=== PATIENT | female | born 1960 | race Caucasian/White ===

== ENCOUNTER 2024-05-07 09:32 | Outpatient (CLI) | payer OTHER, SELFPAY | END 2024-05-07 09:33 | disposition home or self-care (01) | PROVIDERS: PCP Family Medicine; Visit Provider Emergency Medicine Emergency Medical Services | DX: S19.9XXA Unspecified injury of neck, initial encounter (principal); V49.3XXA Car occupant (driver) (passenger) injured in unspecified nontraffic accident, initial encounter; Y92.410 Unspecified street and highway as the place of occurrence of the external cause | CPT/HCPCS: A0425; A0427 ==

== ENCOUNTER 2024-05-07 10:39 | Emergency (ER) | payer OTHER, SELFPAY ==
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
[2024-05-07 10:40] VITALS: BP 132/81; PULSE 68; RESP 18; TEMP 36.8; O2SAT 97; BMI 18.8
== END 2024-05-07 12:09 | disposition home or self-care (01) ==
LOC: ED 12:05
PROVIDERS: Emergency Provider Emergency Medicine Emergency Medical Services; PCP Family Medicine
DX: S16.1XXA Strain of muscle, fascia and tendon at neck level, initial encounter (principal); V49.9XXA Car occupant (driver) (passenger) injured in unspecified traffic accident, initial encounter
CPT/HCPCS: 70450; 72125; 72170; 99284; 99291; G0390

== ENCOUNTER 2025-04-04 01:12 | Emergency (ER) | payer OTHER, SELFPAY ==
[2025-04-04 01:15] VITALS: BP 127/76; PULSE 68; RESP 16; TEMP 35.9; O2SAT 98; BMI 20.3
--- OUTSIDE RECORDS SUMMARY | 2025-04-04 01:15 | XMS_ITS | Clinical Summary ---
Author Organization [facility] Address [address] [place] [address] Care Team Providers Care Detail Maker And Fitter Name Role Phone Alba Hernandez MD Primary Care Provide r Allergies Active Allergy Reactions Criticality Noted Date Comments Polymyxin B *Unknown Low 09/17/2022 Polymyxin B Sulf-Trimethoprim 2006 eye drops Rofecoxib *Unknown High 10/09/2006 not sure Trimethoprim *Unknown Low 09/17/2022 Medications medication order composer Biotin-Hair, skin and nails. Take TID. 0 7 Active glucosamine-stefano droitin, 500-400mg, (COSAMIN DS) 500-400 mg tablet Take 1 Tablet by mouth 3 times daily. 0 1 Active cyclobenzaprine (FLEXERIL) 10 mg tabletIndication s:Tension headache Take 0.5-1 Tablets (5-10 mg) by mouth 2 times daily if needed for Muscle Spasm. 30 tablet. 3 1 Active fluticasone (50 mcg per actuation) nasal solution (FLONASE)Indicat ions:Seasonal allergies SHAKE LIQUID AND USE 2 SPRAYS IN EACH NOSTRIL EVERY DAY 16 g 1 1 Active cholecalciferol (Vitamin D-3) 2,000 unit capsule Take 1 Capsule (2,000 units) by mouth once daily. 0 1 Active triamcinolone, 55 mcg each actuation, nasal (Nasacort) 55 mcg nasal sprayIndications :Rhinitis, unspecified type Inhale 2 Sprays to both nostrils once daily. 16.9 mL 1 3 Active nicotine (NICORETTE) 4 mg gumIndications:N icotine use disorder CHEW ONE PIECE EVERY HOUR WHILE AWAKE NEEDED FOR NICOTINE CRAVING. 100 Each 2 3 Active testosterone custom compoundIndicati ons:Low testosterone Testosterone 2mg/gram cream (topiclick): apply 0.5 gram (2 clicks) topically to skin as instructed daily in the morning 30 g 5 Active medication order composer Calcium magnesium 1000-500 mg 2 tablets daily Active Owlez-0-RHZ-EPA- Fish Oil (Fish OiL) 1,000 (120-180) mg cap Take by mouth. Active estradioL 0.01% (0.1 mg/g) vaginal creamIndications :Atrophic vaginitis Insert 1 g into the vagina once weekly. 42.5 g 5 5 Active montelukast 10 mg tabletIndication s:Dust allergy Take 1 Tablet (10 mg) by mouth at bedtime. 90 Tablet 3 5 Active medication order composer Take by mouth. Stress essentials Cortisol pro 5 Active SUMAtriptan NASAL 20 mg/actuation sprayIndications :Intractable episodic headache, unspecified headache type Give at minimum 2hrs apart. Max Dose: 40mg per 24hrs.INHALE 1 SPRAY IN EACH NOSTRIL EVERY 2 HOURS NEEDED FOR MIGRAINE. MAXIMUM DAILY DOSE IS 2 PUFFS 3 Each 2 5 Active traMADoL 50 mg tabletIndication s:Upper back pain on left side Take 0.5-1 Tablets (25-50 mg) by mouth every 6 hours if needed for Pain. Take least amount possible. 20 Tablet 5 Active Additional Information Patient not taking.Reported on 02/25/2025 meloxicam 15 mg tabletIndication s:Upper back pain on left side Take 1 Tablet (15 mg) by mouth once daily. Take with food. No other NSAID medications with this medication. 30 Tablet 5 Active Active Problems Problem Noted Date Diagnosed Date Biceps tendon rupture, right, initial encounter 01/11/2025 s/p right shoulder open rota tor cuff repair, acromioplasty, AC joint resection on 09/01/24 by Rubio Aldrich MD 09/04/2024 Atrophic vaginitis 07/05/2016 Scoliosis 12/24/2014 ACL tear 06/12/2012 Congenital mitral insufficiency 10/09/2006 Overview (10/09/2006): very mild by 1999 Echo LGSIL of cervix of undetermined significance Overview (07/08/2023): 2001 LSIL, [place] CORNELL I 05/2021 UNS/HPV negative 09/2021 NIL 06/2023 LSIL/HPV+, HPV 16/18 Negative Plan: Pap and HPV due 06/2024 Resolved Problems Problem Noted Date Diagnosed Date Resolved Date Pap smear for cervical cancer screening 09/01/2021 07/08/2023 Overview (10/17/2021): Plan: Pap/HPV in 5 years Routine adult health maintenance 03/26/2014 06/21/2015 Overview (03/26/2014): Colonoscopy 03/2014 normal repeat in 10 years 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 06/21/2015 Myalgia 03/11/2009 06/06/2012 Hepatitis, unspecified 06/30/200706/21 Overview (06/30/2007): 2006, resolved Cerebral aneurysm, nonruptured 06/30/2007 09/26/2010 Overview (06/30/2007): 1-2 mm R A1, 2007 Chronic fatigue syndrome 10/09/200603/2014 Backache, unspecified 10/09/20062015 Papanicolaou smear of cervix with low grade squamous intraepithelial lesion (LGSIL) 10/09/2006 06/26/2021 Overview (10/09/2006): had colp Anxiety state, unspecified 10/09/2006 0 06/21/2015 Arthropathy, unspecified, site unspecified 10/09/2006 06/06/2012 Overview (10/09/2006): cervical degen arthritis Encounters Date Type Department Care Team Description 04/01/2025 8:00 AM CDT - 04/01/2025 11:59 PM CDT Hospital Encounter [address] [place] [address] Deshaun Solorzano MD Becken, Amy, PT 04/01/2025 Travel 03/25/2025 11:45 AM CDT - 03/25/2025 11:59 PM CDT Hospital Encounter [address] [place] [address] Deshaun Solorzano MD Rein, Erik, PT 03/25/2025 Travel 03/18/2025 8:00 AM CDT - 03/18/2025 11:59 PM CDT Hospital Encounter [address] [place] [address] Deshaun Solorzano MD Becken, Amy, PT 03/18/2025 Travel 03/12/2025 2:15 PM CDT Office Visit [facility] [address] [phone] Rubio Aldrich MD Recheck (s/p right shoulder open rotator cuff repair, acromioplasty, AC joint resection on 09/01/24 by Rubio Aldrich MD) 03/11/2025 8:00 AM CDT - 03/11/2025 11:59 PM CDT Hospital Encounter [address] [address] Deshaun Solorzano MD Vinar, Kaylin J, GUM MACHINE OPERATOR 03/11/2025 Travel 03/04/[address] [address] Alba Hernandez MD Questions 03/02/2025 3:37 PM CDT - 03/02/2025 11:59 PM CDT Hospital Encounter [address] [place] [address] Deshaun Solorzano MD Rein, Erik, PT DDD (degenerative disc disease), cervical; Foraminal stenosis of cervical region 03/02/2025 Travel 02/25/2025 7:45 AM CDT Office Visit [facility] [place] [address] [facility] [address] [phone] Deshaun Solorzano MD Consult (Left Upper Back) 02/25/2025 Travel 01/11/2025 2:00 PM CDT Office Visit [facility] [address] [facility] [address] [phone] Clifford Bojorquez PA Recheck (Right shoulder recheck) 01/11/2025 Travel from Last 3 Months Immunizations Immunization Administration Dates Next Due AMB Influenza, IIV3 (Age >=3 years)(Flu Clinic Only) 03/27/2012 AMB Influenza, IIV4 PF (=>6 mos Flulaval,Fluzone Fluarix)(Flu Clinic Only) 04/07/2014 COVID-19 vaccine ([employer] 30mcg/0.3mL) PF, MDV 07/20/2020,06/29/2020 Hepatitis A (Adult) 03/14/2007,08/23/2006 Hepatitis B (Adult) 05/06/2015,03/14/2007,2006 INFLUENZA, IIV3 PF (AGE >= 6 MO) 03/26/2024 Influenza A (H1N1), Inactivated 05/13/2009 Influenza A (H1N1), Inactiva dago (Age >=3 Years) 05/13/2009 Influenza Virus, Unspecified 03/05/2013, 03/27/2012,03/07/2011,2009,05/13/2009,02/28/2009,04/15/2008,1 06/29/2006,04/13/2006,04/11/2005, 003 Influenza, IIV3 (Age 6-35 mos) 03/07/2011,2009 Influenza, IIV3 (Age >=3 years) 03/05/20 13,03/27/2012,03/07/2011,2009,02/28/2009,04/15/2008,04/29/2007,1 06/13/2005,04/11/2005,05/12/2003 Influenza, IIV4 03/12/2023, 2,05/23/2021,2019,03/18/2019,02/20/2018,04/09/2017,1 ,04/07/2014 MMR 03/18/2019 Td (Age >=7 Years) 01/10/2016 Td, Preservative Free (age > = 7 Years) 01/10/2016 Tdap 09/24/2005 Tuberculin (PPD) 04/26/2020, 8,10/29/2017,2017,08/17/2016,11/29/2014,2013,1 ,05/17/2009,09/06/2008, 009,03/12/2007 Family History Medical History Relation Name Comments Heart block Brother 1 alive triple bypass Cancer-colon Brother 2 Zachary Aortic aneurysm Brother 3 alive Alcoholism Father Brett Cancer Father Brett lung Heart Disease Father Brett Mitral valve r eplacement, early 70s Hypertension Father Brett Cancer-breast Maternal Aunt 1 Margi Roberts post menopa usal Stroke Maternal Aunt 2 Alejandra in her 50s. no breast cancer Alcoholism Mother Margi Roberts Allergies Mother Margi Roberts Cancer-breast Mother Margi Roberts post menopausa l Coronary artery disease Mother Margi Roberts Depression Mother Margi Roberts Heart Disease Mother Margi Roberts MIs at age 61 Heart failure Mother Margi Roberts Hypertension Mother Margi Roberts Osteoarthritis Mother Margi Roberts Osteoporosis Mother Margi Roberts Thyroid Disease Mother Margi Roberts Cancer-breast Other maternal cousi n Aortic aneurysm Paternal Grandfather Cancer-ovarian No Family History Relation Name Status Comments Brother 1 alive Brother 2 Zachary Alive Brother 3 alive Alive Father Brett lung ca Maternal Aunt 1 Charmaine Maternal Aunt 2 Alejandra Mother Margi Roberts Other Paternal Grandfather Social History Tobacco Use Types Packs/Day Years Used Date Smoking Tobacco: Never Passive Smoke Exposure: Past Smokeless Tobacco: Former Chew Tobacco Cessation:Counseling Given: Yes Comments:9 months ago - used nicotime gum Alcohol Use Standard Drinks/Week Comments Yes 8 (1 standard drink = 0.6 oz pur e alcohol) PHQ-2 Answer Date Recorded PHQ-2 TOTAL SCORE 0 07/23/2024 Social Connections Answer Date Recorded Do you often feel lonely or isolated from those around you? 0 05/19/2024 Alcohol Use Answer Date Recorded How often do you have a drink containing alcohol ? 3 02/25/2025 How many drinks containing a lcohol do you have on a typical day when you are drinking? 0 02/25/2025 How often do you have five or more drinks on one occasion? 0 02/25/2025 Financial Resource Strain Answer Date R ecorded Difficulty of Paying Living Expenses 3 05/19/2024 Difficulty of Paying Living Expenses Not on file 05/19/2024 Food Insecurity Answer Date Recorded Do you worry your food will run out before you are able to buy more? 1 05/19/2024 Transportation Needs Answer Date Record ed Does lack of transportation keep you from medica l appointments? 1 05/19/2024 Does lack of transportation keep you from work, meetings or getting things that you need? 1 05/19/2024 Housing Stability Answer Date Recorded What is your housing situation today? 1 05/19/2024 Utilities Answer Date Recorded Do you have trouble paying f or utilities (for example, heat, electricity, water, phone)? 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 Not on file Not on file Not on file Obstetrics History Para Term AB IAB SAB Ectopic Multiple Livin g Live Births 3 3 3 3 Date Outcome GA Total Labor Labor/2nd/3rd Weight Sex Type Anes PTL Irene A1 A5 Name Clin Term Term Term Last Filed Vital Signs Vital Sign Reading Time Taken Comments Blood Pressure 115/74 02/25/2025 8:01 AM CDT Pulse 69 02/25/2025 8:01 AM CDT Temperature 36.2 C (97.2 F) 06/03/2024 9:16 AM SOUND ENGINEER Respiratory Rate 16 06/03/2024 9:16 AM SOUND ENGINEER Oxygen Saturation 99% 11/24/2024 7:10 AM CDT Inhaled Oxygen Concentration - - Weight 50.8 kg (112 lb) 02/25/2025 8:01 AM CDT Height 157.3 cm (5' 1.93) 02/25/2025 8:01 AM CD T Body Mass Index 20.53 02/25/2025 8:01 AM CDT Plan of Treatment Upcoming Encounters Date Type Department Care Team (Late st Contact Info) Description 04/08/2025 8:00 AM SOUND ENGINEER Appointment [address] [address] Mattie Eisenberg, GUM MACHINE OPERATOR [address] [place] [address] 04/15/2025 8:00 AM SOUND ENGINEER Appointment [address] [address] Mattie Eisenberg, GUM MACHINE OPERATOR [address] [place] [address] 04/20/2025 11:00 AM SOUND ENGINEER Office Visit [facility] [address] [place] [address] Alba Hernandez MD [address] [place] [address] 2025 12:00 PM SOUND ENGINEER Office Visit [facility] [address] [phone] Deshaun Solorzano MD [address] [place] [address] 2025 1:00 PM SOUND ENGINEER Appointment [address] [address] Jessie Calderón, PT [address] [place] [address] 06/23/2025 2:00 PM SOUND ENGINEER Office Visit [facility] [address] [place] [address] [place] [phone] Clifford Bojorquez PA [address] [facility] [address] [place] [address] Health Maintenance Due Date Last Done Comments Pneumococcal series for age 50+ (1 of 2 - PCV) 1981 Zoster (shingles) series for age 50+ (1 of 2) 2012 RSV vaccine for adults or (1 - Risk 60-74 years 1-dose series) 2022 Pap test for age 21-65 06/27/2024 , 06/27/2023, 09/05/2021, Additional history exists Influenza Vaccine (#1) 2025 , 03/12/2023, 05/29/2022, Additional history exists Depression screening for age 12+ 07/30/2025 07/30/2024, 07/23/2024, 06/27/2023, Additional history exists Mammogram for age 45-75 08/27/2025 08/28/19, 06/27/2023, 06/14/2022, Additional history exists Tetanus booster 01/09/2026 01/10/2016, 08/02/2016, 09/24/2005 BMI (ht and wt on same day) for age 18+ 02/25/2026 02/25/2025, 07/23/2024, 06/27/2023, Additional history exists Lipids for age 45-75 08/27/2029 08/27/2024, 06/27/2023, 03/12/2023, Additional history exists Colonoscopy through age 75 10/29/203310/29, 10/30/2023, 10/30/2023, Additional history exists Hepatitis B series for 19+ Completed 05/06, 03/14/2007, 09/20/2006 HIV for age 15-65 Completed 06/27/2023, , 05/25/2021 Hepatitis C screening for ag e 18-79 Completed 06/27/2023, 09/05/2021, 05/25/2021, Additional history exists Procedures Procedure Name Priority Date/Time Associated Diagnosis Comments LIPID PANEL W REFLEX MEASURED LDL Routine 08/27/2024 2:36 PM CDT Lipid screening XR MAMMO ANABELA BILAT SCREEN Routine 08/27/2024 2:35 PM CDT Visit for screening mammogram COLONOSCOPY 10/30/2023 10:04 AM CDT ANTI HIV 1/2 Routine 06/27/2023 10:35 AM SOUND ENGINEER Screen for STD (sexually transmitted disease) ANTI HCV Routine 06/27/2023 10:35 AM SOUND ENGINEER Screen for STD (sexually transmitted disease) HPV HIGH RISK Routine 06/27/2023 9:50 AM SOUND ENGINEER Cervical cancer screening from Last 3 Months or Most Recently Relevant to Health Maintenance Results * (ABNORMAL) LIPID PANEL W REFLEX MEASURED LDL (08/27/2024 2:36 PM CDT) CHOLESTEROL, TOTAL 238(H) <200 mg/dL [facility] HDL CHOLESTEROL 91 > OR = 50 mg/dL [facility] TRIGLYCERIDES 208(H) <150 mg/dL [facility] Comment: If a non-fasting specimen was collected, consider repeat triglyceride testing on a fasting specimen if clinically indicated. Renae et al. J. of Clin. Lipidol. 2015;9:129-169. LDL-CHOLESTEROL 115(H) mg/dL (calc) [facility] Comment: Reference range: <100 Desirable range <100 mg/dL for primary prevention; <70 mg/dL for patients with CHD or diabetic patients with > or = 2 CHD risk factors. LDL-C is now calculated using the Kati calculation, which is a validated novel method providing better accuracy than the Friedewald equation in the estimation of LDL-C. Rahul QUINTANA et al. RHONDA. 2013;310(19): 9490-3323 (http://education.QVIVO/faq/GMI439) CHOL/HDLC RATIO 2.6 <5.0 (calc) [facility] NON HDL CHOLESTEROL 147(H) <130 mg/dL (calc) [facility] Comment: For patients with diabetes plus 1 major ASCVD risk factor, treating to a non-HDL-C goal of <100 mg/dL (LDL-C of <70 mg/dL) is considered a therapeutic option. Blood BLOOD SPECIMEN / Unknown 08/27/2024 2:36 PM CDT 08/27/2024 2:38 PM CDT us Alba Hernandez MD CHEMISTRY Final Result [employer] [facility] [address] [place] [address], [employer] [address] [place] [address] * XR MAMMO ANABELA BILAT SCREEN (08/27/2024 2:35 PM CDT) Anatomical Region Laterality Modality BREASTS, Breast Left, Breast Right Bilateral Mammography Impressions 08/31/2024 2:19 PM CDT There is no radiographic evidence for malignancy. Recommend annual mammograms. MAMMOGRAM ASSESSMENT: ACR 1 Negative PATIENTS: You will also receive a letter with your examination results in an easy to read format. If you have questions about your results, please contact your referring provider. Narrative 08/31/2024 2:19 PM CDT For Patients: As a result of the 21st Century Cures Act, medical imaging exams and procedure reports are released immediately into your electronic medical record. You may view this report before your referring provider. If you have questions, please contact your health care provider. XR MAMMO ANABELA BILAT SCREEN [[id number]] CLINICAL HISTORY: This is an asymptomatic 64 y.o. patient. INDICATION FOR EXAM: Mammogram Screening. TECHNIQUE: CC and MLO views were obtained. This study was evaluated with the assistance of Computer-Aided Detection. Breast Tomosynthesis was used in interpretation. COMPARISON FILM: Yes 06/27/23 [facility] 06/14/22 [facility] FINDINGS: There are scattered areas of fibroglandular density. There are no dominant masses, suspicious micro calcifications or areas of architectural distortion. us Alba Hernandez MD MAMMO Final Result * COLONOSCOPY (10/30/2023 10:04 AM CDT) 10/30/2023 10:0 4 AM CDT Narrative Transcriptions Rahul Spencer MD - 10/30/2023 11:11 AM CDT Patient Name: Margi Pickens Procedure Date: 10/30/2023 Gender: Female Date of : 1960 Admit Type: Outpatient Procedure: Colonoscopy Proceduralist: Rahul Spencer MD , Erin Abrams, ALEXANDRU(Nurse), Tahira Dale (Nurse) Referring MD: Alba Hernandez Indications/Pre-Op Diagnosis: Screening for colorectal malignant neoplasm, Last colonoscopy: March 2014 Medications: Fentanyl 100 micrograms IV, Midazolam 3 mgIV, The level of sedation administered wasmoderate Procedure Description: The patient had risks, benefits and alternatives explained to andgave informed consent. The patient had a stable cardiopulmonary status and judged an adequate candidate for conscious sedation. The endoscope [id number]-[id number] was passed through the anus andadvanced to 4 cm into the ileum. The colonoscopy was performed without difficulty. The patient tolerated the procedure well. The quality ofthe bowel preparation was good. The ileocecal valve, appendiceal orifice, and rectum were photographed. Complications: No immediate complications. Estimated Blood Loss & Specimen: Estimated blood loss: none. Specimen collected - None Findings: The perianal and digital rectal examinations were normal. The sigmoid colon was significantly redundant. The terminal ileum appeared normal. The exam was otherwise without abnormality. Impressions/Post-Op Diagnosis: - Redundant colon. - The examined portion of the ileum was normal. - The examination was otherwise normal. - No specimens collected. Recommendation: - Patient has a contact number available for emergencies. The signsand symptoms of potential delayed complications were discussed with the patient. Return to normal activities tomorrow. Written discharge instructions were provided to the patient. - Resume previous diet. - Continue present medications. - Miralax 1 capful (17 grams) in 8 ounces of water PO daily for 2months. - Repeat colonoscopy in 10 years for screening purposes. Moderate Sedation: A time out was performed before the procedure. Moderate (conscious) sedation was administered by the endoscopy nurse and supervised bythe endoscopist. The following parameters were monitored: oxygensaturation, heart rate, blood pressure, EKG, CO2, respiratory rate, adequacy of pulmonary ventilation and reponse to care. Please refer to the patient's medical record flowsheets and nursing notes for moderate sedation details. Total physician intraservice time was 20 minutes. Rahul Spencer MD 10/30/2023 11:11:24 AM This report has been signed electronically. Note Initiated On: 10/30/2023 10:04 AM Procedure Code(s): --- Professional --- 04511, Colonoscopy, flexible; diagnostic, including collection of specimen(s) bybrushing or washing, when performed (separateprocedure) Diagnosis Code(s): --- Professional --- Z12.11, Encounter for screening formalignant neoplasm of colon Q43.8, Other specified congenitalmalformations of intestine CPT copyright 2022 [employer]. All rights reserved. The codes documented in this report are preliminary and upon political organizer reviewmay be revised to meet current compliance requirements. Scope In: 10:42:48 AM Scope Withdrawal Time 0 hours 7 minutes 58 seconds Scope Out: 11:01:27 AM Rahul Spencer MD PROCEDURE ORD Final Res ult * ANTI HCV (06/27/2023 10:35 AM SOUND ENGINEER) Pathologist [facility] HEPATITIS C ANTIBODY Non-Reacti ve Non-React abhijeet 06/27/2023 10:12 PM SOUND ENGINEER [facility] Comment:Please note, per www .CDC.gov: If a patient is known to be at high risk of HCV infection, or is symptomatic, and the physician's suspicion of HCV infection is high, HCV RNA testing is often employed and is of diagnostic value, even after an initial negative anti-HCV test result. Blood BLOOD SPECIMEN / Unknown Venipuncture / Unknown 06/27/2023 10:35 AM SOUND ENGINEER 06/27/2023 10:37 AM SOUND ENGINEER Alba Hernandez MD SEND OUTS Final Result Performing Organization Address City/[facility]/ZIP Co de Phone Number [facility] [address] [place] [address], * ANTI HIV 1/2 (06/27/2023 10:35 AM SOUND ENGINEER) [facility] HIV-1/HIV-2 SCREEN Non-Reacti ve Non-Reacti ve 06/28/2023 12:54 AM SOUND ENGINEER [facility] Comment:HIV-1 p24 and HIV-1/ HIV-2 Ab Not Detected. Blood BLOOD SPECIMEN / Unknown Venipuncture / Unknown 06/27/2023 10:35 AM SOUND ENGINEER 06/27/2023 10:37 AM SOUND ENGINEER Alba Hernandez MD SEND OUTS Final Result Performing Organization Address City/[facility]/ZIP Co de Phone Number [facility] [address] [place] [address], * (ABNORMAL) HPV HIGH RISK (06/27/2023 9:50 AM SOUND ENGINEER) [facility] TYPE 16 Negative Negative 07/01/2023 3:08 PM SOUND ENGINEER [facility] TYPE 18 Negative Negative 07/01/2023 3:08 PM SOUND ENGINEER [facility] OTHER HIGH RISK TYPES Positive(A) Negative 07/01/2023 3:08 PM SOUND ENGINEER [facility] Other (Cervical/Vagina l) Non-Blood / Unknown 06/27/2023 9:50 AM SOUND ENGINEER 06/27/2023 5:33 PM SOUND ENGINEER Narrative [facility] - 07/01/2023 3:08 PM SOUND ENGINEER Specimen is positive for the DNA of any one of, or combination of, the following high risk HPV types: 31, 33, 35, 39, 45, 51, 52, 56, 58, 59, 66, 68. HPV types 16 and 18 DNA were undetectable or below the pre-set threshold. Methodology: [employer] 4800 HPV Test us Alba Hernandez MD MICROBIOLOGY Final Result [facility] [address] [place] [phone], from Last 3 Months or Most Recently Relevant to Health Maintenance Insurance [facility] [employer] [facility] [employer] Advance Directives * Full Code (Latest Code Status on File) Date Activated Date Inactivated Comments 12/24/2016 1:59 PM 12/24/2016 9:21 PM Question Answer Comments Code Status Discussion: Not Discussed * Full Code Date Activated Date Inactivated Comments 12/24/2016 1:58 PM 12/24/2016 1:59 PM Question Answer Comments Code Status Discussion: Not Discussed Care Teams Detail Maker And Fitter Relationship Specialty Start Date End Date Alba Hernandez MD [address] [place] [address] PCP - General Family Practice 06/14/11
--- NOTE | 2025-04-04 01:28 | ED.GENADULT ---
HPI - General Adult General Time Seen by Provider: 01:28 Date Seen: 04/04/25 Chief complaint: Back Injury/Pain Stated complaint: chest pain Time Seen by Provider: 04/04/25 01:28 AMPOULE WASHING MACHINE OPERATOR Source: patient Mode of arrival: ambulatory History of Present Illness HPI narrative: Margi Zambrano is a 64-year-old female with a past medical history of generalized anxiety, anemia, chronic fatigue, hepatitis, nonruptured cerebral aneurysm who presents the emergency department for evaluation of chest pain. Patient reports that she has had some upper back pain which she describes as a burning nerve pain since January. Patient has been following with her doctor, thought it was nerve pain, and patient has been getting next therapy. Patient states that she gets this pain daily. Patient reports increasing intensity over the past 3-4 days, also reports the past 2 nights she has had the burning sensation wrapping around to her chest as well as some sweating with the episodes and some pressure on the left upper chest. Patient denies any trauma or injury, denies any headache, vision changes, weakness, tingling, numbness, shortness of breath, no pleuritic chest pain, denies any abdominal pain, nausea, vomiting, diarrhea, lower extremity edema or calf tenderness. No other complaints. Related Data Home Medications ?Medication ?Instructions ?Recorded ?Confirmed nicotine (polacrilex) 4 mg gum mg PO 09/17/22 09/17/22 nicotine 7 mg/24 hr daily 1 patch transdermal DAILY 09/17/22 09/17/22 transdermal patch Previous Rx's ?Medication ?Instructions ?Recorded ketorolac 10 mg tablet 10 mg PO Q8H 5 days #15 tabs 05/07/24 ondansetron HCl 4 mg tablet 4 mg PO Q6H #10 tabs 05/07/24 Allergies Allergy/AdvReac Type Severity Reaction Status Date / Time rofecoxib Allergy Intermediate Verified 09/17/22 08:01 polymyxin B Allergy Mild Verified 09/17/22 08:01 trimethoprim Allergy Mild Verified 09/17/22 08:01 Review of Systems Narrative: Past medical history, past surgical history, medications, allergies, family history, and social history were reviewed with the patient. No additional pertinent items. A medically appropriate review of systems was performed with pertinent positives and negatives noted in HPI, all other systems negative. [facility] Medical History (Updated 11/02/25 @ 02:06 by Radha Palomino MD) Nonruptured cerebral aneurysm ?I67.1 - Cerebral aneurysm, nonruptured (ICD-10) Hepatitis, unspecified ?K75.9 - Inflammatory liver disease, unspecified (ICD-10) Chronic fatigue syndrome ?G93.32 - Myalgic encephalomyelitis/chronic fatigue syndrome (ICD-10) Dysplasia of cervix, low grade (CORNELL 1) (~2001) ?N87.0 - Mild cervical dysplasia (ICD-10) Generalized anxiety disorder ?F41.1 - Generalized anxiety disorder (ICD-10) History of anemia ?Z86.2 - Personal history of diseases of the blood and blood-forming organs and certain disorders involving the immune mechanism (ICD-10) Mitral valve insufficiency ?I34.0 - Nonrheumatic mitral (valve) insufficiency (ICD-10) Vulvar lesion ?N90.89 - Other specified noninflammatory disorders of vulva and perineum (ICD-10) Pelvic pain (06/09/12) ?R10.2 - Pelvic and perineal pain (ICD-10) Corneal abrasion ?S05.00XA - Injury of conjunctiva and corneal abrasion without foreign body, unspecified eye, initial encounter (ICD-10) Closed fracture of fifth metatarsal bone of left foot ?S92.352A - Displaced fracture of fifth metatarsal bone, left foot, initial encounter for closed fracture (ICD-10) Surgical History (Updated 09/18/22 @ 11:57 by Lima Park MD) H/O lymph node excision (~1980) ?Z98.890 - Other specified postprocedural states (ICD-10) History of hand surgery (~1977) ?Z98.890 - Other specified postprocedural states (ICD-10) History of hysteroscopy (~09/2007) ?Z98.890 - Other specified postprocedural states (ICD-10) History of dilatation and curettage (~12/2006) ?Z98.890 - Other specified postprocedural states (ICD-10) History of appendectomy (~1994) ?Z90.49 - Acquired absence of other specified parts of digestive tract (ICD-10) Family History (Updated 09/18/22 @ 12:31 by Lima Park MD) Father Alcohol dependence Heart disease High cholesterol High blood pressure Lung cancer Mother Heart disease High blood pressure High cholesterol Breast cancer Alcohol dependence Depression Osteoporosis Thyroid disease Family/Other High blood pressure Heart disease High cholesterol Arterial aneurysm Maternal Grandfather Alcohol dependence Maternal Grandmother Osteoporosis Vaginal cancer Paternal Grandmother Osteoporosis Aunt Stroke Breast cancer Social History (Updated 09/18/22 @ 12:33 by Lima Park MD) Narrative: Cis-gender, heterosexual woman. Relationship status: Single. Education: College degree Occupation: per diem interpreter Tobacco: Former user chewing tobacco E-cigarettes: No Alcohol: Yes: 8-10 glasses of wine/week Illicit/recreational drugs: Denies Safety concerns at home or work: No Dietary restriction(s): No Exercise: Not reported Smoking Status: Former smoker How often do you have a drink containing alcohol: 2-3 times a week How many standard drinks containing alcohol do you have on a typical day: 1 or 2 How often do you have six or more drinks on one occasion: Never AUDIT-C Alcohol total score: 3 Non-prescribed substance use: denies use service: No Exam Narrative: Exam Narrative: General: Afebrile, no acute distress HEENT: Normocephalic, atraumatic, conjunctiva normal. MMM Neck: non-tender, supple Cardio: regular rate. regular rhythm Resp: Normal work of breathing, no respiratory distress, lungs clear bilaterally, no wheezing, rhonchi, rales Chest/Back: no visual signs of trauma, no midline tenderness, no CVA tenderness Abdomen: soft, non distension, no tenderness, no peritoneal signs Neuro: alert and fully oriented. CN II-XII grossly intact. Grossly normal strength and sensation in all extremities. MSK: no deformities. Normal range of motion. No lower extremity edema or calf tenderness Integumentary/Skin: no rash visualized, normal color Psych: normal affect, normal behavior Const: Vital Signs, click to edit/add: Vital Signs - 24 hr 04/04/25 01:15 AMPOULE WASHING MACHINE OPERATOR Temperature 96.6 F L Pulse Rate [Left P ulse Oximeter] 68 Respiratory Rate 16 Blood Pressure [Ri ght Upper Arm] 127/76 Pulse Oximetry 98 Oxygen Delivery Me thod Room Air Course Vital Signs Vital signs: Initial Vital Signs Temperature 96.6 F L 04/04/25 01:15 AMPOULE WASHING MACHINE OPERATOR Temperature Source Temporal Artery Scan 04/04/25 01:15 AMPOULE WASHING MACHINE OPERATOR Pulse Rate 68 04/04/25 01:15 AMPOULE WASHING MACHINE OPERATOR Pulse Rhythm Regular 04/04/25 01:15 AMPOULE WASHING MACHINE OPERATOR Respiratory Rate 16 04/04/25 01:15 AMPOULE WASHING MACHINE OPERATOR Blood Pressure 127/76 04/04/25 01:15 AMPOULE WASHING MACHINE OPERATOR Blood Pressure Mean 93 04/04/25 01:15 AMPOULE WASHING MACHINE OPERATOR Blood Pressure Position Sitting 04/04/25 01:15 AMPOULE WASHING MACHINE OPERATOR Pulse Oximetry 98 04/04/25 01:15 AMPOULE WASHING MACHINE OPERATOR Oxygen Delivery Method Room Air 04/04/25 01:15 AMPOULE WASHING MACHINE OPERATOR Vital Signs Temperature 96.6 F L 04/04/25 01:15 AMPOULE WASHING MACHINE OPERATOR Pulse Rate 68 04/04/25 01:15 AMPOULE WASHING MACHINE OPERATOR Respiratory Rate 16 04/04/25 01:15 AMPOULE WASHING MACHINE OPERATOR Blood Pressure 127/76 04/04/25 01:15 AMPOULE WASHING MACHINE OPERATOR Pulse Oximetry 98 04/04/25 01:15 AMPOULE WASHING MACHINE OPERATOR Oxygen Delivery Method Room Air 04/04/25 01:15 AMPOULE WASHING MACHINE OPERATOR Temperature 96.6 F L 04/04/25 01:15 AMPOULE WASHING MACHINE OPERATOR Pulse Rate 68 04/04/25 01:15 AMPOULE WASHING MACHINE OPERATOR Respiratory Rate 16 04/04/25 01:15 AMPOULE WASHING MACHINE OPERATOR Blood Pressure 127/76 04/04/25 01:15 AMPOULE WASHING MACHINE OPERATOR Pulse Oximetry 98 04/04/25 01:15 AMPOULE WASHING MACHINE OPERATOR Oxygen Delivery Method Room Air 04/04/25 01:15 AMPOULE WASHING MACHINE OPERATOR Medical Decision Making MDM Narrative Medical decision making narrative: Margi Zambrano is a 64-year-old female who presents the emergency department for evaluation of back/chest pain. Upon arrival patient is nontoxic appearing, afebrile, no distress. Patient hemodynamically stable vital signs within normal limits. Differential diagnosis includes but is not limited to ACS versus atypical chest pain versus musculoskeletal versus nerve pain versus costochondritis versus pneumonia versus pleural effusion versus pneumothorax versus gastritis versus acid reflux versus less likely CHF versus PE among others. Upon arrival patient is placed a security officer supervisor, EKG, comprehensive labs, chest x-ray performed. Patient declined anything for her symptoms or pain at this time. I reviewed EKG which demonstrates sinus bradycardia with a ventricular rate of 57 beats per minute, normal axis, QTC 402, no acute ischemic change. No prior EKG to compare to. I personally reviewed interpreted chest x-ray which is unremarkable with no cardiomegaly, no focal infiltrate, pleural effusion, pneumothorax. No evidence of CHF/pneumonia. Comprehensive labs unremarkable with no leukocytosis white blood cell count 4.6, hemoglobin 12.8, no acute metabolic or electrolyte abnormality, no transaminitis, normal lipase, negative troponin. Patient's ED workup unremarkable, low suspicious for ACS given patient's clinical presentation, EKG, troponin, chest x-ray finding, no evidence of acute infection or metabolic electrolyte abnormality, no evidence of CHF/pneumonia/pneumothorax. Less likely PE/dissection. Patient with no cardiomegaly, no widened mediastinum, no tachycardia, tachypnea, hypoxia, or hypertension. I discussed results with patient, on re-evaluation patient continues to be resting comfortably. Patient feels comfortable with discharge home and is agreeable to close outpatient follow-up with her primary care provider, discussed possible further cardiac testing in strict return precautions discussed. Patient understands and agrees the plan. Medical Records Medical records reviewed: Yes I reviewed the patient's medical records Lab Data Lab results reviewed: Yes I reviewed the patient's lab results Labs: Lab Results 04/04/25 Range/Units 02:29 WBC 4.61 (4.50-11.00) K/uL RBC 4.24 (4.00-5.20) m/uL Hgb 12.8 (12.0-16.0) gm/dL Hct 38.7 (33.0-51.0) % MCV 91 (80-100) fL MCH 30 (26-34) pg MCHC 33 (32-36) gm/dL RDW Coeff of Janay 12.9 (11.5-15.5) % Plt Count 334 (140-440) K/uL Neut % (Auto) 44.9 (42.0-72.0) % Lymph % (Auto) 43.0 (20-44) % [place] % (Auto) 8.7 (0.0-11.0) % Eos % (Auto) 3.0 (0.0-7.0) % Baso % (Auto) 0.4 (0.0-3.0) % Neut # (Auto) 2.07 (1.7-7.0) K/uL Lymph # (Auto) 1.98 (0.90-2.90) K/uL [place] # (Auto) 0.40 (0.00-0.90) K/UL Eos # (Auto) 0.14 (0.00-0.50) K/uL Baso # (Auto) 0.02 (0.00-0.30) K/uL Abs Immat Gran (auto) 0.00 (0.00-0.30) K/uL Imm/Tot Granulo (auto) 0.0 % Sodium 138 (135-149) mmol/L Potassium 4.0 (3.6-5.1) mmol/L Chloride 108 (96-114) mmol/L Carbon Dioxide 27 (20-32) mmol/L Anion Gap 3 L (7-15) mEq/L BUN 19 (7-30) mg/dL Creatinine 0.8 (0.5-1.5) mg/dL Estimated Creat Clear 47.95 Estimated GFR 83 ml/min Glucose 101 (60-115) mg/dL Calcium 9.3 (8.4-10.6) mg/dL Total Bilirubin 0.5 (0.1-1.5) mg/dL AST 31 (12-35) U/L ALT 23 (4-35) U/L Alkaline Phosphatase 103 (40-150) U/L Troponin I < 0.01 (0.01-0.04) ng/mL Total Protein 7.0 (6.0-8.3) g/dL Albumin 4.2 (3.3-5.0) g/dL Lipase 100 (23-300) U/L Imaging Data Chest x-ray: Attestation: I have reviewed the pertinent imaging results. Radiologist's impression: Chest pain. TECHNIQUE: Chest 2 views. COMPARISON: None. FINDINGS: Cardiovascular and mediastinum: Cardiomediastinal silhouette is within normal limits. Lungs and pleural spaces: Lungs are clear. No sign of infiltrate or mass. No sign of pleural effusion. No pneumothorax. Bones and soft tissues: No significant findings. IMPRESSION: No acute cardiopulmonary abnormality. Discharge Plan Discharge Clinical Impression: Chest pain Patient Disposition: Home, Self-Care Instructions: Chest Pain (ED) Additional Instructions: Please follow-up with your primary care provider in the next 3-5 days for further evaluation, follow-up, possible further testing. Please call to schedule appointment. Please continue on medications. You may try antacids, Tylenol, or ibuprofen as needed for pain. Please return to the emergency department if you develop worsening symptoms. It was a pleasure taking care of you today. We hope you feel better soon. Prescriptions: No Action nicotine (polacrilex) 4 mg gum PO nicotine 7 mg/24 hr patch 24 hour 1 patch transdermal DAILY ondansetron HCl 4 mg tablet 4 mg PO Q6H Qty: 10 0RF ketorolac 10 mg tablet 10 mg PO Q8H 5 Days Qty: 15 0RF Follow Up/Referrals: Alba Hernandez MD [Primary Care Provider, Family Practice] Stand Alone Forms: [facility] Info Instructions
--- NOTE | 2025-04-04 02:01 | CRLHL7_ITS ---
For Patients: As a result of the Cures Act, medical imaging exams and procedure reports are released immediately into your electronic medical record. You may view this report before your referring provider. If you have questions, please contact your health care provider. INDICATION: Chest pain. TECHNIQUE: Chest 2 views. COMPARISON: None. FINDINGS: Cardiovascular and mediastinum: Cardiomediastinal silhouette is within normal limits. Lungs and pleural spaces: Lungs are clear. No sign of infiltrate or mass. No sign of pleural effusion. No pneumothorax. Bones and soft tissues: No significant findings. IMPRESSION: No acute cardiopulmonary abnormality. Dictated by Cesar Byrd MD @ 04/04/2025 2:34:45 AM (Electronically Signed)
[2025-04-04 02:41] LABS: Hematocrit* 38.7 % (33.0-51.0); Hemoglobin* 12.8 gm/dL (12.0-16.0); Immature Granulocytes Abs Auto 0.00 K/uL (0.00-0.30); Immature Granulocytes Pct Auto 0.0 %; Lymphocytes Absolute Auto 1.98 K/uL (0.90-2.90); Mean Corpuscular HGB Conc 33 gm/dL (32-36); Mean Corpuscular Hemoglobin 30 pg (26-34); Mean Corpuscular Volume 91 fL (80-100); RDW Coefficient of Variation % 12.9 % (11.5-15.5); Red Blood Count* 4.24 m/uL (4.00-5.20); White Blood Count* 4.61 K/uL (4.50-11.00)
[2025-04-04 02:42] LABS: Slide Review Reflex No
[2025-04-04 02:48] LABS: Albumin* 4.2 g/dL (3.3-5.0); Chloride* 108 mmol/L (96-114); Sodium* 138 mmol/L (135-149)
[2025-04-04 02:49] LABS: Potassium* 4.0 mmol/L (3.6-5.1)
[2025-04-04 02:51] LABS: Alanine Aminotransferase* 23 U/L (4-35); Alkaline Phosphatase* 103 U/L (40-150); Anion Gap 3 mEq/L (7-15); Aspartate Amino Transferase* 31 U/L (12-35); Bilirubin Total* 0.5 mg/dL (0.1-1.5); Blood Urea Nitrogen* 19 mg/dL (7-30); Carbon Dioxide* 27 mmol/L (20-32); Creatinine* 0.8 mg/dL (0.5-1.5); Est. Creatinine Clearance* 47.95; Estimated Glomerular Filt Rate 83 ml/min
[2025-04-04 02:52] LABS: Calcium* 9.3 mg/dL (8.4-10.6); Glucose* 101 mg/dL (60-115); Total Protein* 7.0 g/dL (6.0-8.3)
--- NOTE | 2025-04-04 02:53 | ED.NURSE ---
pt refused IV. wanted blood draw only
[2025-04-04 04:01] VITALS: BP 137/64; PULSE 61; RESP 16; O2SAT 97
== END 2025-04-04 04:01 | disposition home or self-care (01) ==
PROVIDERS: Emergency Provider Emergency Medicine; PCP Family Medicine
DX: R07.9 Chest pain, unspecified (principal)
CPT/HCPCS: 36415; 71046; 80053; 83690; 84484; 85025; 99284; 99285